=== PATIENT | female | born 1985 | race Hispanic/Latino ===

== ENCOUNTER → 2020-09-20 16:08 | Outpatient (CLI) | payer OTHER, SELFPAY ==
[2020-09-20] MEDS: COVID-19 VACC #1, MRNA(MOD) 100 MCG/0.5 ML VIAL IM (16:19)
== END ==
PROVIDERS: Visit Provider Internal Medicine
DX: Z23 Encounter for immunization (principal)
CPT/HCPCS: 0011A; 91301

== ENCOUNTER → 2020-10-19 13:34 | Outpatient (CLI) | payer OTHER, SELFPAY ==
[2020-10-19] MEDS: COVID-19 VACC #2, MRNA(MOD) 100 MCG/0.5 ML VIAL IM (13:48)
== END ==
PROVIDERS: Referring Provider Internal Medicine; Visit Provider Internal Medicine
DX: Z23 Encounter for immunization (principal)
CPT/HCPCS: 0012A; 91301